=== PATIENT | male | born 1980 | race Caucasian/White ===

== ENCOUNTER 2019-11-21 09:13 | Emergency (ER) | payer OTHER ==
[~2019-11-21] VITALS: Ht 185.4 cm; Wt 81.6 kg
== END 2019-11-21 12:19 | disposition home or self-care (01) ==
LOC: EDBD 09:13 → ER 09:13
DX: S51.821A Laceration with foreign body of right forearm, initial encounter (principal); W26.8XXA Contact with other sharp object(s), not elsewhere classified, initial encounter; Y93.89 Activity, other specified; Y92.89 Other specified places as the place of occurrence of the external cause; Y99.8 Other external cause status